=== PATIENT | male | born 1955 | race Hispanic/Latino ===

== ENCOUNTER 2021-09-11 23:10 | Emergency (ER) | payer OTHER, MEDICARE ==
[2021-09-11] MEDS ORDERED: Morphine 4 MG/ML VIAL ONE (23:40)
[2021-09-11] MEDS ORDERED: Ketorolac Tromethamine 30 MG/ML VIAL ONE (23:40)
== END 2021-09-12 00:10 | disposition home or self-care (01) ==
LOC: NAV ERS 23:10
DX: S22.31XA Fracture of one rib, right side, initial encounter for closed fracture (principal); W01.198A Fall on same level from slipping, tripping and stumbling with subsequent striking against other object, initial encounter; Y93.64 Activity, baseball
CPT/HCPCS: 71046; 96372; J1885; J2270

== ENCOUNTER 2022-09-06 20:10 | Emergency (ER) | payer MEDICARE ==
[2022-09-06] MEDS ORDERED: Oxymetazoline HCl 0.05% (30 ML BOT) ONE (20:46)
[2022-09-06] MEDS ORDERED: Propranolol HCl 20 MG TAB PO SCH (21:45)
[2022-09-06] MEDS ORDERED: Morphine 2 MG/ML VIAL ONE (22:21)
== END 2022-09-06 22:44 | disposition short-term general hospital (02) ==
LOC: NAV ERS 20:10
DX: R04.0 Epistaxis (principal); R10.30 Lower abdominal pain, unspecified; E11.9 Type 2 diabetes mellitus without complications; E78.00 Pure hypercholesterolemia, unspecified; F17.220 Nicotine dependence, chewing tobacco, uncomplicated; I10 Essential (primary) hypertension; Z79.82 Long term (current) use of aspirin; Z79.84 Long term (current) use of oral hypoglycemic drugs
CPT/HCPCS: 96372; 99284; J2270